=== PATIENT | female | born 1990 | race Caucasian/White ===

== ENCOUNTER 2022-01-24 15:04 | Emergency (ER) | payer OTHER, MEDICAID | END 2022-01-24 15:30 | disposition home or self-care (01) | LOC: BURERS 15:04 | DX: O9A.212 Injury, poisoning and certain other consequences of external causes complicating pregnancy, second trimester (principal); S30.0XXA Contusion of lower back and pelvis, initial encounter; S10.91XA Abrasion of unspecified part of neck, initial encounter; S20.319A Abrasion of unspecified front wall of thorax, initial encounter; O99.332 Smoking (tobacco) complicating pregnancy, second trimester; F17.210 Nicotine dependence, cigarettes, uncomplicated; Z3A.16 16 weeks gestation of pregnancy; V89.2XXA Person injured in unspecified motor-vehicle accident, traffic, initial encounter | CPT/HCPCS: 99283 ==

== ENCOUNTER 2023-03-08 01:17 | Emergency (ER) | payer OTHER | END 2023-03-08 01:48 | disposition home or self-care (01) | LOC: BURERS 01:17 | DX: I80.02 Phlebitis and thrombophlebitis of superficial vessels of left lower extremity (principal); J45.909 Unspecified asthma, uncomplicated; I10 Essential (primary) hypertension; F17.290 Nicotine dependence, other tobacco product, uncomplicated | CPT/HCPCS: 99283 ==

== ENCOUNTER 2024-02-18 18:04 | Emergency (ER) | payer OTHER, SELFPAY ==
[2024-02-18] MEDS ORDERED: Ipratropium/Albuterol 3 ML NEB ONE (18:29)
[2024-02-18] MEDS ORDERED: predniSONE 20 MG TAB ONE (18:35)
== END 2024-02-18 18:48 | disposition home or self-care (01) ==
LOC: BURERS 18:04
DX: J06.9 Acute upper respiratory infection, unspecified (principal); J45.909 Unspecified asthma, uncomplicated; I10 Essential (primary) hypertension; F17.210 Nicotine dependence, cigarettes, uncomplicated
CPT/HCPCS: J7512; J7620